=== PATIENT | female | born 1955 | race Two or more races ===

== ENCOUNTER 2017-10-12 19:24 | Emergency (ER) | payer MEDICARE, BC ==
[~2017-10-12] VITALS: Ht 162.6 cm; Wt 72.3 kg
[2017-10-12] MEDS ORDERED: ketorolac trometh inj. 60 MG/2 ML VIAL IM ONE (20:40)
[2017-10-12] MEDS ORDERED: IBUP-1984 PO (22:24)
[2017-10-12 22:34] VITALS: BP 133/70
== END 2017-10-12 22:35 | disposition home or self-care (01) ==
LOC: ER 19:25
DX: S86.811A Strain of other muscle(s) and tendon(s) at lower leg level, right leg, initial encounter (principal); E11.9 Type 2 diabetes mellitus without complications; X58.XXXA Exposure to other specified factors, initial encounter; Y93.89 Activity, other specified; Y92.89 Other specified places as the place of occurrence of the external cause; Y99.8 Other external cause status
CPT/HCPCS: 82948; 93971; 96372; 99284; J1885

== ENCOUNTER 2019-01-01 17:44 | Inpatient (IN) | payer MEDICARE, BC ==
[~2019-01-01] VITALS: Ht 162.6 cm; Wt 73.0 kg
[~2019-01-01 17:44] MED LIST: HYDR-4383 PO
[2019-01-01] MEDS ORDERED: ondansetron/PF 4mg/2ml inj IV ONE (18:05)
[2019-01-01] MEDS ORDERED: morphine 4 MG/ML inj SYRINge IV ONE (18:05)
[2019-01-01 18:31] LABS: BASOPHILS % (AUTO) 0.2 % (0-1); EOSINOPHILS # (AUTO) 0.1 X10'3 (0-0.9); EOSINOPHILS % (AUTO) 0.9 % (0-6); HEMATOCRIT 37.2 % (35.0-45.0); HEMOGLOBIN 12.9 g/dl (12.0-16.0); LYMPHOCYTES # (AUTO) 1.4 X10'3 (1.1-4.8); LYMPHOCYTES % (AUTO) 21.2 % (21-51); MEAN CORPUSCULAR HEMOGLOBIN 28.4 PG (27.0-31.0); MEAN CORPUSCULAR HGB CONC 34.6 g/dL (33.0-36.5); MEAN CORPUSCULAR VOLUME 82.1 FL (78-98); MEAN PLATELET VOLUME 8.9 FL (7.4-10.4); MONOCYTES # (AUTO) 0.5 X10'3 (0-0.9); MONOCYTES % (AUTO) 8.1 % (2-12); NEUTROPHILS # (AUTO) 4.5 X10'3 (1.8-7.7); NEUTROPHILS % (AUTO) 69.6 % (42-75); PLATELET COUNT 251 X10'3 (140-440); RED BLOOD COUNT 4.52 X10'6 (4.20-5.60); RED CELL DISTRIBUTION WIDTH 13.1 % (11.5-14.5); WHITE BLOOD COUNT 6.4 X10'3 (4.5-11.0)
[2019-01-01 18:39] LABS: ALANINE AMINOTRANSFERASE 36 U/L (12-78); ALBUMIN 3.4 G/DL (3.4-5.0); ALBUMIN/GLOBULIN RATIO 0.9 (1.1-1.5); ALKALINE PHOSPHATASE 112 IU/L (46-116); ANION GAP 7 (8-16); ASPARTATE AMINO TRANSFERASE 43 U/L (10-37); BILIRUBIN,TOTAL 1.1 MG/DL (0.1-1.0); BLOOD UREA NITROGEN 8 MG/DL (7-18); CALCIUM 8.3 MG/DL (8.5-10.1); CHLORIDE 90 MMOL/L (99-107); GLUCOSE 120 MG/DL (70-104); POTASSIUM 3.9 MMOL/L (3.5-5.1); SODIUM 124 MMOL/L (135-145); TOTAL CARBON DIOXIDE 27.2 MMOL/L (24-32); eGFR 72 ML/MIN
[2019-01-01 18:58] LABS: CLARITY,URINE CLEAR (Clear); COLOR,URINE YELLOW (Yellow); GLUCOSE, URINE NEGATIVE (Neg); KETONES,URINE NEGATIVE (Neg); LEUKOCYTE ESTERASE ,URINE NEGATIVE (Neg); NITRITES, URINE NEGATIVE (Neg); OCCULT BLOOD,URINE SMALL (Neg); PH,URINE 6.5 (4.8-8.0); PROTEIN,URINE NEGATIVE (Neg); UROBILINOGEN,URINE 0.2 E.U/dL (0.2-1.0)
[2019-01-01 19:01] LABS: UA COLLECTION TYPE CLN CATCH MIDSTREAM
[2019-01-01 19:07] LABS: BACTERIA,URINE NONE SEEN /HPF (Neg); MUCUS STRANDS NONE SEEN /LPF (Neg); RBC,URINE 0-2 /HPF (0-2); SQUAMOUS EPITHELIAL CELL,UR FEW /LPF (FEW); WBC,URINE 0-4 /HPF (0-4)
[2019-01-01] MEDS ORDERED: normal saline 1000ML IV soln IVB ONE (20:15)
[2019-01-01] MEDS ORDERED: METF500T PO (20:21)
[2019-01-01] MEDS ORDERED: MAGN500C16 PO (20:21)
[2019-01-01] MEDS ORDERED: UBID50TA3 PO (20:26)
[2019-01-01] MEDS ORDERED: OMEG1CAP PO (20:26)
[2019-01-01] MEDS ORDERED: CHOL10002 PO (20:26)
[2019-01-01] MEDS ORDERED: CYAN100087 PO (20:26)
[2019-01-01] MEDS ORDERED: ROSU10TA2 PO (20:26)
[2019-01-01] MEDS ORDERED: LISI-600 PO (20:26)
[2019-01-01] MEDS ORDERED: ASPI81TA52 PO (20:26)
[2019-01-01] MEDS ORDERED: magnesium hydroxide 30ml (MOM) UD suspension PO PRN (21:40)
[2019-01-01] MEDS ORDERED: acetaminophen 325mg tablet PO PRN (21:40)
[2019-01-01] MEDS ORDERED: ondansetron/PF 4mg/2ml inj IV PRN (21:40)
[2019-01-01] MEDS ORDERED: mag hydrox/Alum hydrox/simeth 30ml oral suspension PO PRN (21:40)
[2019-01-01] MEDS ORDERED: HYDROcodone/acetaminophen 5mg/325mg tablet PO PRN (21:45)
[2019-01-01] MEDS: normal saline 1000ml 1,000 ML IV SCH (22:03)
[2019-01-01 22:08] LABS: LIPASE 215 U/L (73-393)
--- NOTE | 2019-01-02 01:23 | NUR ---
PT UP TO THE BATHROOM
--- NOTE | 2019-01-02 02:18 | NUR ---
PT UP TO NS AND INFORMED ME THAT SHE PULLED OUT HER IV BECAUSE THE PUMP WAS BEEPING. HER DAUGHTER WALKED DOWN THE ZULETA AFTER HER. HER DAUGHTER WAS ASLEEP. THE CALL LIGHT WAS ON THE SIDE RAIL. THE PATIENT HAS BEEN UP SEVERAL TIMES THIS PAST 30 MINUTES AND MULTIPLE STAFF HAVE BEEN IN TO ASSIST HER. THE CANNULA IS INTACT. WILL PREPARE FOR ANOTHER IV START.
--- NOTE | 2019-01-02 02:32 | NUR ---
TUCKED PT BACK TO BED
--- NOTE | 2019-01-02 04:00 | NUR ---
PT ASLEEP. WILL ALLOW PT TO SLEEP AND NOT DO VITAL SIGNS. DAUGHTER IN ROOM ASLEEP WELL.
[2019-01-02 07:52] LABS: BASOPHILS % (AUTO) 0.2 % (0-1); EOSINOPHILS % (AUTO) 0.5 % (0-6); HEMATOCRIT 36.9 % (35.0-45.0); HEMOGLOBIN 12.6 g/dl (12.0-16.0); LYMPHOCYTES # (AUTO) 1.5 X10'3 (1.1-4.8); LYMPHOCYTES % (AUTO) 18.9 % (21-51); MEAN CORPUSCULAR HEMOGLOBIN 28.4 PG (27.0-31.0); MEAN CORPUSCULAR HGB CONC 34.3 g/dL (33.0-36.5); MEAN CORPUSCULAR VOLUME 82.9 FL (78-98); MEAN PLATELET VOLUME 8.7 FL (7.4-10.4); MONOCYTES # (AUTO) 0.5 X10'3 (0-0.9); MONOCYTES % (AUTO) 6.8 % (2-12); NEUTROPHILS # (AUTO) 5.7 X10'3 (1.8-7.7); NEUTROPHILS % (AUTO) 73.6 % (42-75); PLATELET COUNT 242 X10'3 (140-440); RED BLOOD COUNT 4.45 X10'6 (4.20-5.60); RED CELL DISTRIBUTION WIDTH 13.3 % (11.5-14.5); WHITE BLOOD COUNT 7.7 X10'3 (4.5-11.0)
[2019-01-02 08:00] VITALS: BP 157/72
[2019-01-02] MEDS: heparin, porcine 5000 units/ml vial SQ SCH ×2 (08:00→19:43)
[2019-01-02] MEDS: aspirin 81mg tablet.DR PO SCH (08:00)
[2019-01-02] MEDS: lisinopril 20mg tablet PO SCH (08:00)
[2019-01-02 08:18] LABS: ALANINE AMINOTRANSFERASE 35 U/L (12-78); ALBUMIN 3.1 G/DL (3.4-5.0); ALBUMIN/GLOBULIN RATIO 0.9 (1.1-1.5); ALKALINE PHOSPHATASE 104 IU/L (46-116); ANION GAP 10 (8-16); ASPARTATE AMINO TRANSFERASE 37 U/L (10-37); BILIRUBIN,TOTAL 0.9 MG/DL (0.1-1.0); BLOOD UREA NITROGEN 5 MG/DL (7-18); BUN/CREATININE RATIO 6.6 (6.6-38.0); CALCIUM 7.8 MG/DL (8.5-10.1); CHLORIDE 100 MMOL/L (99-107); CREATININE 0.76 MG/DL (0.40-0.90); GLUCOSE 117 MG/DL (70-104); SODIUM 133 MMOL/L (135-145); TOTAL CARBON DIOXIDE 23.1 MMOL/L (24-32); TOTAL PROTEIN 6.6 G/DL (6.4-8.2); eGFR 77 ML/MIN
[2019-01-02] MEDS: normal saline 1000ml 1,000 ML IV SCH ×2 (09:27→19:45)
[2019-01-02 11:00] VITALS: BP 127/60
[2019-01-02 18:00] VITALS: BP 137/74
--- NOTE | 2019-01-02 18:38 | NUR ---
Patient in room [facility]. I have received report from SINTIA Bryant and had the opportunity to ask questions and assume patient care.Patient is up walking around without socks. Educated her on the importance of wearing socks because of diabetes, and to help prevent falls.
--- NOTE | 2019-01-02 18:39 | NUR ---
Problems reprioritized. Patient report given, questions answered & plan of care reviewed with Iglesia PATRICIO.
--- NOTE | 2019-01-02 20:36 | NUR ---
Patient just had an appointment with her DM doctor a few weeks ago. She is not sure the date of her follow up appointment. Addendum: 01/02/19 at 2038 by Iglesia Bright RN Amended: Links added.
--- NOTE | 2019-01-03 00:34 | NUR ---
Patient is wanting to go home. She is confused, more so than usual per daughter. Daughter is calling patients in hopes that he can convince her to stay. I explained that if she were to leave it would be against medical advice, and that she would leave without doctors orders
[2019-01-03 00:50] VITALS: BP 153/74
[2019-01-03] MEDS: normal saline 1000ml 1,000 ML IV SCH (04:51)
--- NOTE | 2019-01-03 06:06 | NUR ---
Problems reprioritized. Patient report given, questions answered & plan of care reviewed with . SINTIA Oro
[2019-01-03 06:07] LABS: ALANINE AMINOTRANSFERASE 37 U/L (12-78); ALBUMIN 3.2 G/DL (3.4-5.0); ALBUMIN/GLOBULIN RATIO 0.9 (1.1-1.5); ALKALINE PHOSPHATASE 99 IU/L (46-116); ANION GAP 10 (8-16); ASPARTATE AMINO TRANSFERASE 34 U/L (10-37); BILIRUBIN,TOTAL 0.6 MG/DL (0.1-1.0); BLOOD UREA NITROGEN 7 MG/DL (7-18); BUN/CREATININE RATIO 9.3 (6.6-38.0); CALCIUM 8.1 MG/DL (8.5-10.1); CHLORIDE 107 MMOL/L (99-107); CREATININE 0.75 MG/DL (0.40-0.90); GLUCOSE 137 MG/DL (70-104); POTASSIUM 3.9 MMOL/L (3.5-5.1); SODIUM 141 MMOL/L (135-145); TOTAL CARBON DIOXIDE 24.2 MMOL/L (24-32); TOTAL PROTEIN 6.6 G/DL (6.4-8.2); eGFR 78 ML/MIN
[2019-01-03 06:09] LABS: BASOPHILS % (AUTO) 0.3 % (0-1); EOSINOPHILS % (AUTO) 0.5 % (0-6); HEMATOCRIT 36.8 % (35.0-45.0); HEMOGLOBIN 12.4 g/dl (12.0-16.0); LYMPHOCYTES # (AUTO) 1.2 X10'3 (1.1-4.8); LYMPHOCYTES % (AUTO) 21.1 % (21-51); MEAN CORPUSCULAR HEMOGLOBIN 28.3 PG (27.0-31.0); MEAN CORPUSCULAR HGB CONC 33.7 g/dL (33.0-36.5); MEAN CORPUSCULAR VOLUME 83.9 FL (78-98); MEAN PLATELET VOLUME 9.2 FL (7.4-10.4); MONOCYTES # (AUTO) 0.4 X10'3 (0-0.9); MONOCYTES % (AUTO) 6.3 % (2-12); NEUTROPHILS # (AUTO) 4.2 X10'3 (1.8-7.7); NEUTROPHILS % (AUTO) 71.8 % (42-75); PLATELET COUNT 249 X10'3 (140-440); RED BLOOD COUNT 4.39 X10'6 (4.20-5.60); RED CELL DISTRIBUTION WIDTH 13.5 % (11.5-14.5); WHITE BLOOD COUNT 5.9 X10'3 (4.5-11.0)
[2019-01-03 07:02] VITALS: BP 133/56
[2019-01-03] MEDS: heparin, porcine 5000 units/ml vial SQ SCH (08:00)
[2019-01-03] MEDS: aspirin 81mg tablet.DR PO SCH (08:41)
[2019-01-03 08:42] VITALS: BP_SYST 133
[2019-01-03] MEDS: lisinopril 20mg tablet PO SCH (08:42)
--- NOTE | 2019-01-03 10:08 | NUR ---
All belongings sent home with patient, cell phone in hand. No meds in pharmacy Addendum: 01/03/19 at 1009 by Preethi Perez RN Amended: Links added.
--- NOTE | 2019-01-03 10:12 | NUR ---
Patient discharged with family, taken to lobby by staff. No new medications. Completed medication next dose for home completed and verbal understanding, hand written on discharge. IVs discontinued, patient tolerated well.
== END 2019-01-03 10:15 | disposition home or self-care (01) | DRG 392 ==
LOC: ER 17:44 → ED HOLD 21:42 → SUR 3N 01-02 08:03
PROVIDERS: ADMIT Internal Medicine; ATTEND Internal Medicine
DX: R10.9 Unspecified abdominal pain (principal); E87.1 Hypo-osmolality and hyponatremia; K80.20 Calculus of gallbladder without cholecystitis without obstruction; E11.9 Type 2 diabetes mellitus without complications; E78.5 Hyperlipidemia, unspecified; I10 Essential (primary) hypertension; Z87.820 Personal history of traumatic brain injury; Z79.899 Other long term (current) drug therapy; Z79.84 Long term (current) use of oral hypoglycemic drugs; Z79.82 Long term (current) use of aspirin
CPT/HCPCS: 36415; 71046; 74176; 76700; 80053; 81001; 82948; 83690; 85025; 85610; 87081; 96361; 96374; 96375; 99285; G0378; J1644; J2270; J2405; J7030

== ENCOUNTER → 2020-09-23 | Emergency (ER) | payer MEDICARE, BC ==
[~2020-09-23] VITALS: Ht 162.6 cm; Wt 61.3 kg
[~2020-09-23] MED LIST changes: +AMOX-580 PO; +ASPI81TA52 PO; +CHOL10002 PO; -HYDR-4383 PO; +LISI20TA28 PO; +Lorazepam PO; +MAGN500C16 PO; +METF500T PO; +OMEG1CAP PO; +ROSU10TA2 PO
[2020-09-23 20:10] LABS: BASOPHILS % (AUTO) 0.4 % (0-1); EOSINOPHILS # (AUTO) 0.1 X10'3 (0-0.9); EOSINOPHILS % (AUTO) 1.6 % (0-6); HEMATOCRIT 35.5 % (35.0-45.0); HEMOGLOBIN 11.8 g/dl (12.0-16.0); LYMPHOCYTES # (AUTO) 2.2 X10'3 (1.1-4.8); LYMPHOCYTES % (AUTO) 32.4 % (21-51); MEAN CORPUSCULAR HEMOGLOBIN 28.4 PG (27.0-31.0); MEAN CORPUSCULAR HGB CONC 33.3 g/dL (33.0-36.5); MEAN CORPUSCULAR VOLUME 85.3 FL (78-98); MEAN PLATELET VOLUME 7.9 FL (7.4-10.4); MONOCYTES # (AUTO) 0.5 X10'3 (0-0.9); MONOCYTES % (AUTO) 7.4 % (2-12); NEUTROPHILS # (AUTO) 3.9 X10'3 (1.8-7.7); NEUTROPHILS % (AUTO) 58.2 % (42-75); PLATELET COUNT 283 X10'3 (140-440); RED BLOOD COUNT 4.16 X10'6 (4.20-5.60); RED CELL DISTRIBUTION WIDTH 13.6 % (11.5-14.5); WHITE BLOOD COUNT 6.8 X10'3 (4.5-11.0)
[2020-09-23 20:21] LABS: ALANINE AMINOTRANSFERASE 18 U/L (12-78); ALBUMIN 3.7 G/DL (3.4-5.0); ALBUMIN/GLOBULIN RATIO 1.1 (1.1-1.5); ANION GAP 6 (8-16); ASPARTATE AMINO TRANSFERASE 17 U/L (10-37); BILIRUBIN,TOTAL 0.8 MG/DL (0.1-1.0); BLOOD UREA NITROGEN 23 MG/DL (7-18); BUN/CREATININE RATIO 26.4 (6.6-38.0); CALCIUM 8.8 MG/DL (8.5-10.1); CHLORIDE 102 MMOL/L (99-107); CREATININE 0.87 MG/DL (0.40-0.90); GLUCOSE 92 MG/DL (70-104); POTASSIUM 4.9 MMOL/L (3.5-5.1); SODIUM 137 MMOL/L (135-145); TOTAL CARBON DIOXIDE 29.1 MMOL/L (24-32); TOTAL PROTEIN 7.1 G/DL (6.4-8.2); eGFR 65 ML/MIN
[2020-09-23 20:22] LABS: ALKALINE PHOSPHATASE 70 IU/L (46-116); LIPASE 235 U/L (73-393)
[2020-09-23 21:16] LABS: CLARITY,URINE SLIGHTLY CLOUDY (Clear); COLOR,URINE YELLOW (Yellow); GLUCOSE, URINE NEGATIVE (Neg); KETONES,URINE NEGATIVE (Neg); LEUKOCYTE ESTERASE ,URINE MODERATE (Neg); NITRITES, URINE NEGATIVE (Neg); OCCULT BLOOD,URINE MODERATE (Neg); PROTEIN,URINE NEGATIVE (Neg); UROBILINOGEN,URINE 0.2 E.U/dL (0.2-1.0)
[2020-09-23 21:17] LABS: UA COLLECTION TYPE CLN CATCH MIDSTREAM
[2020-09-23 21:30] VITALS: BP 114/61
[2020-09-23 21:31] LABS: BACTERIA,URINE 2+ /HPF (Neg); MUCUS STRANDS NONE SEEN /LPF (Neg); RBC,URINE 0-2 /HPF (0-2); SQUAMOUS EPITHELIAL CELL,UR MODERATE /LPF (FEW)
== END | disposition home or self-care (01) ==
LOC: ER 19:17
DX: R10.31 Right lower quadrant pain (principal); R63.0 Anorexia; I10 Essential (primary) hypertension; E11.9 Type 2 diabetes mellitus without complications; Z90.49 Acquired absence of other specified parts of digestive tract; Z88.6 Allergy status to analgesic agent; Z88.8 Allergy status to other drugs, medicaments and biological substances; Z79.2 Long term (current) use of antibiotics; Z79.82 Long term (current) use of aspirin; Z79.899 Other long term (current) drug therapy; Z68.23 Body mass index [BMI] 23.0-23.9, adult
CPT/HCPCS: 36415; 80053; 81001; 83690; 85025; 87088; 99283

== ENCOUNTER 2021-01-07 11:52 | Emergency (ER) | payer MEDICARE, BC, OTHER ==
[~2021-01-07] VITALS: Ht 170.2 cm; Wt 62.2 kg
[~2021-01-07 11:52] MED LIST changes: -OMEG1CAP PO; +OMEG1CAP61 PO
[2021-01-07 12:28] VITALS: BP 142/72
[2021-01-07] MEDS ORDERED: ONDA4TAB6 PO (14:07)
[2021-01-07] MEDS ORDERED: HYDR-3965 PO (14:07)
== END 2021-01-07 16:16 | disposition home or self-care (01) ==
LOC: ER 11:53
DX: S62.101A Fracture of unspecified carpal bone, right wrist, initial encounter for closed fracture (principal); I10 Essential (primary) hypertension; E11.9 Type 2 diabetes mellitus without complications; Z88.5 Allergy status to narcotic agent; Z88.8 Allergy status to other drugs, medicaments and biological substances; Z79.82 Long term (current) use of aspirin; Z79.2 Long term (current) use of antibiotics; Z79.899 Other long term (current) drug therapy; W18.30XA Fall on same level, unspecified, initial encounter; Y93.89 Activity, other specified; Y92.89 Other specified places as the place of occurrence of the external cause; Y99.8 Other external cause status
CPT/HCPCS: 29125; 73110; 99283

== ENCOUNTER 2021-06-28 14:24 | Emergency (ER) | payer MEDICARE, BC, OTHER ==
[~2021-06-28] VITALS: Ht 162.6 cm; Wt 59.1 kg
[~2021-06-28 14:24] MED LIST changes: -MAGN500C16 PO; +MAGN500C4 PO; +ONDA4TAB6 PO
[2021-06-28 14:37] VITALS: BP 141/67
[2021-06-28] MEDS ORDERED: IBUP-1986 PO (15:36)
[2021-06-28] MEDS ORDERED: ibuprofen tablet 400 MG TABLET PO ONE (15:40)
== END 2021-06-28 16:04 | disposition home or self-care (01) ==
LOC: ER 14:25
DX: S22.41XA Multiple fractures of ribs, right side, initial encounter for closed fracture (principal); S60.811A Abrasion of right wrist, initial encounter; G30.9 Alzheimer's disease, unspecified; F02.80 Dementia in other diseases classified elsewhere, unspecified severity, without behavioral disturbance, psychotic disturbance, mood disturbance, and anxiety; I10 Essential (primary) hypertension; E11.9 Type 2 diabetes mellitus without complications; Z88.5 Allergy status to narcotic agent; Z79.01 Long term (current) use of anticoagulants; Z79.2 Long term (current) use of antibiotics; Z79.82 Long term (current) use of aspirin; Z79.899 Other long term (current) drug therapy; W19.XXXA Unspecified fall, initial encounter; Y93.89 Activity, other specified; Y92.89 Other specified places as the place of occurrence of the external cause; Y99.8 Other external cause status
CPT/HCPCS: 71101; 99283

== ENCOUNTER 2021-07-10 13:38 | Emergency (ER) | payer MEDICARE, BC, OTHER ==
[~2021-07-10] VITALS: Ht 152.4 cm; Wt 56.8 kg
[~2021-07-10 13:38] MED LIST changes: +IBUP-1986 PO
[2021-07-10] MEDS ORDERED: LIDOcaine 1% W/epiNEPHrine 1:200,000 10ml vial IJ ONE (15:05)
[2021-07-10] MEDS ORDERED: HYDROcodone/acetaminophen 10/325mg tab PO ONE (15:05)
[2021-07-10] MEDS ORDERED: LIDOcaine 1% w/EPI 1:100,000 30ml vial (MDV) IJ ONE (15:10)
[2021-07-10] MEDS ORDERED: propofol 10mg/ml 20ml vial IV ONE (16:10)
--- NOTE | 2021-07-10 16:11 | NUR ---
pt back from ct. informed
--- NOTE | 2021-07-10 17:32 | NUR ---
XRAY AT BEDSIDE FOR POST REDUCTION
[2021-07-10 19:30] VITALS: BP 161/65
== END 2021-07-10 19:32 | disposition home or self-care (01) ==
LOC: ER 13:39
DX: S52.572A Other intraarticular fracture of lower end of left radius, initial encounter for closed fracture (principal); S52.612A Displaced fracture of left ulna styloid process, initial encounter for closed fracture; S09.90XA Unspecified injury of head, initial encounter; W18.30XA Fall on same level, unspecified, initial encounter; Y92.009 Unspecified place in unspecified non-institutional (private) residence as the place of occurrence of the external cause; M25.532 Pain in left wrist; I10 Essential (primary) hypertension; E11.9 Type 2 diabetes mellitus without complications; Z88.5 Allergy status to narcotic agent; Z88.8 Allergy status to other drugs, medicaments and biological substances; Z79.2 Long term (current) use of antibiotics; Z79.82 Long term (current) use of aspirin; Z79.899 Other long term (current) drug therapy; W18.09XA Striking against other object with subsequent fall, initial encounter; Y93.89 Activity, other specified; Y92.89 Other specified places as the place of occurrence of the external cause; Y99.8 Other external cause status
CPT/HCPCS: 25605; 70450; 73100; 73110; 94799; 99152; 99285; J2704; J3490

== ENCOUNTER 2021-07-12 13:29 | Emergency (ER) | payer MEDICARE, BC, OTHER ==
[~2021-07-12] VITALS: Ht 162.6 cm; Wt 65.0 kg
[~2021-07-12 13:29] MED LIST changes: +LIDOcaine 1% W/epiNEPHrine 1:100,000 20ml vial ONE
[2021-07-12 13:34] VITALS: BP 146/65
== END 2021-07-12 14:41 | disposition home or self-care (01) ==
LOC: ER 13:29
DX: S60.022A Contusion of left index finger without damage to nail, initial encounter (principal); S60.052A Contusion of left little finger without damage to nail, initial encounter; S60.032A Contusion of left middle finger without damage to nail, initial encounter; S60.042A Contusion of left ring finger without damage to nail, initial encounter; S60.012A Contusion of left thumb without damage to nail, initial encounter; F03.90 Unspecified dementia, unspecified severity, without behavioral disturbance, psychotic disturbance, mood disturbance, and anxiety; I10 Essential (primary) hypertension; E11.9 Type 2 diabetes mellitus without complications; Z88.5 Allergy status to narcotic agent; Z88.8 Allergy status to other drugs, medicaments and biological substances; Z79.82 Long term (current) use of aspirin; Z79.1 Long term (current) use of non-steroidal anti-inflammatories (NSAID); Z79.899 Other long term (current) drug therapy; X58.XXXA Exposure to other specified factors, initial encounter; Y93.89 Activity, other specified; Y92.89 Other specified places as the place of occurrence of the external cause; Y99.8 Other external cause status
CPT/HCPCS: 99284; J3490